=== PATIENT | male | born 1970 | race African-American/Black ===

== ENCOUNTER 2018-10-08 19:12 | Emergency (ER) | payer BC, MEDICAID ==
[~2018-10-08] VITALS: Ht 175.3 cm; Wt 98.0 kg
[~2018-10-08 19:12] MED LIST: WARF1TAB47 PO
[2018-10-08] MEDS ORDERED: hydrALAZINE HCL IV 20 MG VIAL IV ONE ×2 (19:30→20:30)
[2018-10-08] MEDS ORDERED: IV NS 0.9% 500 ML BAG IV ONE (19:30)
[2018-10-08] MEDS ORDERED: hydrALAZINE HCL IV 20 MG VIAL ONE ×2 (19:50→20:17)
--- NOTE | 2018-10-08 19:50 | NUR ---
A 20G IV LINE WAS SRARTED ON LAC . BLOOD WAS SRAWN. NS ADMINISTERED.
[2018-10-08 19:51] LABS: BASOPHILS # (AUTO) 0.1 /CMM (0.0-0.2); BASOPHILS % (AUTO) 1.3 % (0.0-2.0); EOSINOPHILS % (AUTO) 1.6 % (0.0-6.0); HEMATOCRIT 46 % (39-51); HEMOGLOBIN 15.6 g/dL (13.5-17.5); MEAN CORPUSCULAR HGB CONC 34 g/dl (31.0-36.0); MEAN CORPUSCULAR VOLUME 92 fL (80-96); MONOCYTES # (AUTO) 0.8 /CMM (0.1-1.30); MONOCYTES % (AUTO) 9.1 % (2.0-12.0); NEUTROPHILS # (AUTO) 4.7 /CMM (1.8-8.9); PLATELET COUNT (AUTO) 263 /CMM (150-450); RED BLOOD CELL COUNT(AUTO) 5.05 MIL/uL (4.5-6.0); WHITE BLOOD COUNT (AUTO) 8.7 K/uL (4.3-11.0)
--- NOTE | 2018-10-08 19:54 | NUR ---
Administered Hydralazine 10mg via IV on LAC #20g
--- NOTE | 2018-10-08 19:55 | NUR ---
PT LEFT FOR CT
[2018-10-08 19:57] LABS: CALCIUM, SERUM 8.7 mg/dL (8.5-10.1); CREATININE 1.3 mg/dL (0.6-1.3)
--- NOTE | 2018-10-08 19:58 | NUR ---
PATIENT PICKED UP BY REPAIRER SHOE STICKS TO CT SCAN VIA [facility].
--- NOTE | 2018-10-08 20:07 | NUR ---
PATIENT BACK FROM CT SCAN. ON BED COMFORTABLY, NO COMPLAINTS MADE AT THIS TIME.
[2018-10-08 21:02] VITALS: BP 160/97
--- NOTE | 2018-10-08 21:03 | NUR ---
Patient discharged to home in stable condition. Patient left ER ambulatory. Written and verbal after care instructions given. Patient verbalizes understanding of instruction. IV line LAC removed, cannula intact and complete, applied pressure. Instructed patient to monitor for bleeding. Instructed patient call 911 or come to ER for worsening condition. Patient verbalized understanding.
== END 2018-10-08 21:07 | disposition home or self-care (01) ==
LOC: ER 19:15
DX: I10 Essential (primary) hypertension (principal); R51 Headache; R42 Dizziness and giddiness; Z86.711 Personal history of pulmonary embolism
CPT/HCPCS: 36415; 70450; 80048; 84484; 85025; 93005; 96361; 96374; 99284; J0360 ×2; J7040